=== PATIENT | female | born 1995 | race Caucasian/White ===

== ENCOUNTER 2018-08-26 16:55 | Emergency (ER) | payer MEDICAID ==
[2018-08-26] MEDS ORDERED: KETOROLAC 15 MG/1 ML SDV IVP ONE (17:19)
[2018-08-26] MEDS ORDERED: NS 1,000 ML IV ONE (17:19)
--- NOTE | 2018-08-26 17:23 | EDPHY ---
H & P Stated Complaint: abd pain Time Seen by Provider: 08/26/18 17:06 HPI/ROS: HPI The patient presents with lower abdominal pain which began 2 hr ago while standing at her house. Pain began suddenly and was severe. She describes it as a constant stabbing pain which radiates throughout her abdomen which is worse when she presses on her lower abdomen. The patient 2 days ago was diagnosed with sciatica at [facility] ED. She had a urinalysis performed which was unremarkable. She was discharged with Vicodin. She was asked to follow up with her primary care doctor and did so today. While at her doctor's office this afternoon, she was doing some stretching exercises. She felt fine during this, however about 30 min following, her abdominal pain began. REVIEW OF SYSTEMS 10 systems were reviewed and negative with the exception of the elements mentioned in the history of present illness. PMHx: Sciatica, last menstrual period was end of July, date unknown Soc Hx: Here with her and child PHYSICAL General Appearance: Alert, tearful and uncomfortable appearing Eyes: Pupils equal and round no pallor or injection ENT, Mouth: Mucous membranes moist Respiratory: There are no retractions, lungs are clear to auscultation Cardiovascular: Regular rate and rhythm Gastrointestinal: Abdomen is soft and tender in right lower and left lower quadrant without rebound or guarding, no masses, bowel sounds normal Neurological: A&O, moves all extremities Skin: Warm and dry, no rashes Musculoskeletal: Neck is supple non tender Extremities: symmetrical, full range of motion Psychiatric: Patient is oriented X 3, there is no agitation Source: Patient Exam Limitations: No limitations - Personal History Current Tetanus/Diphtheria Vaccine: Yes Current Tetanus Diphtheria and Acellular Pertussis (TDAP): Yes - Medical/Surgical History Hx Asthma: No Hx Chronic Respiratory Disease: No Hx Diabetes: No Hx Cardiac Disease: No Hx Renal Disease: No Hx Cirrhosis: No Hx Alcoholism: No Hx HIV/AIDS: No Hx Splenectomy or Spleen Trauma: No Other PMH: UTI - Social History Smoking Status: Current every day smoker Constitutional: Initial Vital Signs Temperature (C) 36.6 C 08/26/18 17:02 Heart Rate 90 08/26/18 17:02 Respiratory Rate 16 08/26/18 17:02 Blood Pressure 130/87 H 08/26/18 17:02 O2 Sat (%) 99 08/26/18 17:02 O2 Delivery Mode Room Air Allergies/Adverse Reactions: Penicillins Allergy (Verified 08/26/18 17:02) Home Medications: Medication Instructions Recorded NK [No Known Home Meds] 08/26/18 Medical Decision Making - Diagnostics Imaging Results: Imaging Impressions Pelvic/Renal Ultrasound 08/26/18 17:19 Impression: Normal pelvic ultrasound. Findings discussed with Ela Barrett MD 08/26/2018 at 18:01. Imaging: I viewed and interpreted images myself Differential Diagnosis: 23-year-old healthy female presents with acute onset of diffuse stabbing abdominal pain associated with nausea about 2 hr ago which has been severe and persistent. Vital signs are normal. Patient is uncomfortable appearing. Abdominal exam demonstrates tenderness in lower quadrants. Differential diagnosis includes ovarian torsion, ovarian cyst with rupture, GERD or gastritis. Plan for IV fluids, Toradol, labs, pelvic ultrasound. Patient's labs were unremarkable. She felt much better after IV fluids and Toradol. Pelvic ultrasound was normal. On reassessment she had very minimal abdominal tenderness in her lower abdomen. We discussed risks and benefits of CT scan and she has decided to hold off at this time. We discussed return precautions including persistent abdominal pain, vomiting, fever. I suspect her pain could be muscular. - Data Points Laboratory Results: Laboratory Results 08/26/18 17:15 08/26/18 17:15 08/26/18 08/26/18 08/26/18 17:15 17:15 17:15 WBC 8.69 10^3/uL 10^3/uL (3.80-9.50) RBC 5.25 10^6/uL 10^6/uL (4.18-5.33) Hgb 15.4 g/dL g/dL (12.6-16.3) Hct 45.3 % % (38.0-47.0) MCV 86.3 fL fL (81.5-99.8) MCH 29.3 pg pg (27.9-34.1) MCHC 34.0 g/dL g/dL (32.4-36.7) RDW 13.7 % % (11.5-15.2) Plt Count 212 10^3/uL 10^3/uL (150-400) MPV 10.8 fL fL (8.7-11.7) Neut % (Auto) 56.0 % % (39.3-74.2) Lymph % (Auto) 30.0 % % (15.0-45.0) [place] % (Auto) 8.3 % % (4.5-13.0) Eos % (Auto) 4.3 % % (0.6-7.6) Baso % (Auto) 1.2 % % (0.3-1.7) Nucleat RBC Rel Count 0.0 % % (0.0-0.2) Absolute Neuts (auto) 4.87 10^3/uL 10^3/uL (1.70-6.50) Absolute Lymphs (auto) 2.61 10^3/uL 10^3/uL (1.00-3.00) Absolute Monos (auto) 0.72 10^3/uL 10^3/uL (0.30-0.80) Absolute Eos (auto) 0.37 10^3/uL 10^3/uL (0.03-0.40) Absolute Basos (auto) 0.10 10^3/uL 10^3/uL (0.02-0.10) Absolute Nucleated RBC 0.00 10^3/uL 10^3/uL (0-0.01) Immature Gran % 0.2 % % (0.0-1.1) Immature Gran # 0.02 10^3/uL 10^3/uL (0.00-0.10) Sodium 139 mEq/L mEq/L (135-145) Potassium 4.0 mEq/L mEq/L (3.5-5.2) Chloride 105 mEq/L mEq/L (97-110) Carbon Dioxide 24 mEq/l mEq/l (22-31) Anion Gap 10 mEq/L mEq/L (6-14) BUN 14 mg/dL mg/dL (7-23) Creatinine 0.8 mg/dL mg/dL (0.6-1.0) Estimated GFR > 60 Glucose 78 mg/dL mg/dL (70-100) Calcium 9.8 mg/dL mg/dL (8.5-10.4) Total Bilirubin 0.5 mg/dL mg/dL (0.1-1.4) AST 22 IU/L IU/L (14-46) ALT 21 IU/L IU/L (9-52) Alkaline Phosphatase 83 IU/L IU/L (38-126) Total Protein 8.3 g/dL H g/dL (6.3-8.2) Albumin 4.9 g/dL g/dL (3.5-5.0) Beta HCG, Qual NEGATIVE Medications Given: Discontinued Medications Sodium Chloride (Ns) 1,000 mls @ 0 mls/hr IV EDNOW ONE; Wide Open PRN Reason: Protocol Stop: 08/26/18 17:20 Last Admin: 08/26/18 17:28 Dose: 1,000 mls Ketorolac Tromethamine (Toradol) 15 mg IVP EDNOW ONE Stop: 08/26/18 17:20 Last Admin: 08/26/18 17:29 Dose: 15 mg Departure - Departure Disposition: Home, Routine, Self-Care Clinical Impression: Abdominal pain Qualifiers: Abdominal location: generalized Qualified Code(s): R10.84 - Generalized abdominal pain Condition: Good Instructions: Acute Abdominal Pain (ED) Additional Instructions: Please return to the emergency department if your worse in any way. Referrals: NONE *PRIMARY CARE P,. [Primary Care Provider] - As per Instructions
[2018-08-26 17:25] LABS: PLATELET COUNT 212 10^3/uL (150-400)
[2018-08-26 18:59] VITALS: BP 128/87
== END 2018-08-26 19:30 | disposition home or self-care (01) ==
DX: R10.84 Generalized abdominal pain (principal); R11.0 Nausea; E86.9 Volume depletion, unspecified; M54.30 Sciatica, unspecified side
CPT/HCPCS: 96374; J1885

== ENCOUNTER 2018-09-13 16:54 | Emergency (ER) | payer MEDICAID ==
[2018-09-13 17:03] VITALS: BP 122/86
--- NOTE | 2018-09-13 17:18 | EDPHY ---
H & P Stated Complaint: R ear pain - Personal History Current Tetanus/Diphtheria Vaccine: Yes Current Tetanus Diphtheria and Acellular Pertussis (TDAP): Yes - Medical/Surgical History Hx Asthma: No Hx Chronic Respiratory Disease: No Hx Diabetes: No Hx Cardiac Disease: No Hx Renal Disease: No Hx Cirrhosis: No Hx Alcoholism: No Hx HIV/AIDS: No Hx Splenectomy or Spleen Trauma: No Other PMH: UTI - Social History Smoking Status: Current every day smoker Time Seen by Provider: 09/13/18 17:06 HPI/ROS: CHIEF COMPLAINT: Requesting right ear cerumen debridement HISTORY OF PRESENT ILLNESS: 23-year-old female in the ER requesting cerumen debridement right ear. She notes decreased hearing in her right ear. No otalgia. She also notes 1 month of intermittently productive cough. History of daily tobacco abuse. No chest pain. No dyspnea. No headache. No nausea or vomiting. No flu-like symptoms. PRIMARY CARE PROVIDER: REVIEW OF SYSTEMS: 10 systems reviewed and negative with the exception of the elements mentioned in the history of present illness PAST MEDICAL & SURGICAL HISTORY: No pertinent medical or surgical history SOCIAL HISTORY:Daily tobacco abuse PHYSICAL EXAM (Prior to examination, patient consented to physical exam, hands were washed and my usual and customary physical exam procedures followed) 1) GENERAL: Well-developed, well-nourished, alert and oriented. Appears to be in no acute distress. 2) HEAD: Normocephalic, atraumatic 3) HEENT: Pupils equal, round, reactive to light bilaterally. Sclera anicteric. Nasopharynx, oropharynx, clear, no lesions. Moist Mucous membranes. No tonsillar enlargement or exudate . Left ear: Physiologic amount of cerumen, nonobstructive, I am able to visualize the tympanic membrane which appears well, appears grossly intact no evidence of perforation or evidence of otitis media otitis externa. Right ear: Physiologic amount of cerumen, nonobstructive, I am able to visualize the tympanic membrane which appears well , a clear effusion is noted in the middle ear, appears grossly intact no evidence of perforation or evidence of otitis media otitis externa. 4) NECK: Full range of motion, no meningeal signs. 5) LUNGS: Clear auscultation bilaterally, no wheezes, no rhonchi, no retractions. 6) HEART: Regular rate and rhythm, no murmur, no heave, no gallop. 7) ABDOMEN: No guarding, no rebound, no focal tenderness, negative McBurney's, negative Conroy's, negative Rovsing's, negative peritoneal sign, 8) MUSCULOSKELETAL: Moving all extremities, no focal areas of tenderness, no obvious trauma. No peripheral edema or discoloration. 9) BACK: No CVA tenderness, no midline vertebral tenderness, no fluctuance, no step-off, no obvious trauma, no visual or palpable abnormality. 10) SKIN: No rash, no petechiae. 11) Psychiatric: Patient is oriented X 3, there is no agitation. DIFFERENTIAL DIAGNOSIS: In no particular order including but not limited to cerumen impaction, middle ear efuusion, infectious etiology (Justina Gresham) Constitutional: Initial Vital Signs Temperature (C) 36.5 C 09/13/18 17:02 Heart Rate 92 09/13/18 17:02 Respiratory Rate 16 09/13/18 17:02 Blood Pressure 122/86 H 09/13/18 17:02 O2 Sat (%) 97 09/13/18 17:02 O2 Delivery Mode Room Air Allergies/Adverse Reactions: Penicillins Allergy (Verified 09/13/18 17:01) Home Medications: Medication Instructions Recorded NK [No Known Home Meds] 08/26/18 Medical Decision Making ED Course/Re-evaluation: Patient has no evidence of infectious etiology, said no evidence of otitis media otitis externa, no evidence of cerumen impaction or tympanic membrane perforation. She does have an effusion. Recommended Sudafed. She has a physiologic amount of cerumen does not require debridement. I recommended smoking cessation. I do not think that antibiotics indicated at this time. Plan will be discharge. Patient feels comfortable being discharged. All questions and concerns addressed by myself. Patient given my usual and customary discharge precautions and instructions regarding their clinical impression. Care of patient under supervision of secondary supervising physician Dr Pickering . (Justina Gresham) The patient was evaluated and managed by the physician loan officer assistant. I have reviewed this chart and I agree with the findings and plan of care as documented , as indicated by my signature. I am the secondary supervising physician. ( Uma Pickering) Departure - Departure Disposition: Home, Routine, Self-Care Clinical Impression: Middle ear effusion Condition: Good Instructions: Pseudoephedrine (By mouth) Additional Instructions: I recommend you stop smoking. Return to the ER if you develop new or worsening symptoms. Referrals: [facility],. [Clinic] - 2-3 days, call for appt.
== END 2018-09-13 18:52 | disposition home or self-care (01) ==
DX: H73.891 Other specified disorders of tympanic membrane, right ear (principal); R05 Cough